=== PATIENT | female | born 1960 | race American Indian/Alaskan Native ===

== ENCOUNTER 2021-12-15 11:45 | Outpatient (CLI) | payer OTHER ==
--- NOTE | 2021-12-21 11:07 | Mammography Report ---
DIGITAL DIAGNOSTIC MAMMOGRAM CONVENTIONAL, 12/15/2021 CLINICAL INFORMATION / INDICATION: Patient presents for high-risk evaluation secondary to family hist ory of breast cancer. Patient has no current complaints. R92.8 TECHNIQUE: Digital bilateral mammographic imaging was performed. COMPARISON: Prior mammogram 01/13/2021 FINDINGS: Breast Density: The breasts are heterogeneously dense, which may obscure small masses. No dominant mass, suspicious calcifications or architectural distortion in either breast. There has been no significant change compared with the prior examination. IMPRESSION: No mammographic evidence of malignancy. Follow up recommendation: Routine yearly screening mammogram. BI-RADS Category 1: NEGATIVE. A "normal" or negative report should not discourage follow up or biopsy of a clinically significant f inding. A written summary of these findings will be mailed to the patient. The patient will be entered into a mammography reporting system which will generate a reminder letter for the patient's next appointmen t at the appropriate interval. According to the [employer], yearly mammograms are recommended starting at age 40 and continuing as long as a woman is in good health. Breast MRI is recommended for women with an lola roximately 20-25% or greater lifetime risk of breast cancer, including women with a strong family his tory of breast or ovarian cancer and women who have been treated for Hodgkin's disease. Signer Name: Shawanda Kincaid MD Signed: 12/21/2021 11:03 AM Workstation Name: [id number]
== END 2021-12-15 11:46 | disposition home or self-care (01) ==
LOC: MAMMO 11:45
DX: R92.8 Other abnormal and inconclusive findings on diagnostic imaging of breast (principal)
CPT/HCPCS: 77066